=== PATIENT | female | born 1990 | race Hispanic/Latino ===

== ENCOUNTER 2017-12-24 06:49 | Emergency (ER) | payer OTHER ==
[2017-12-24 07:53] LABS: Basophils % (Auto) 0.2 % (0.0-1.8); Eosinophils % (Auto) 0.5 % (0.0-4.3); Hematocrit 31.9 % (30.3-42.9); Hemoglobin 11.1 gm/dl (10.1-14.3); Lymphocytes # (Auto) 1.4 K/mm3 (1.2-5.4); Lymphocytes % (Auto) 14.9 % (13.4-35.0); Mean Corpuscular HGB Conc 35 % (30-34); Mean Corpuscular Hemoglobin 30 pg (28-32); Mean Corpuscular Volume 87 fl (79-97); Monocytes # (Auto) 0.5 K/mm3 (0.0-0.8); Monocytes % (Auto) 4.9 % (0.0-7.3); Platelet Count 144 K/mm3 (140-440); Red Blood Count 3.67 M/mm3 (3.65-5.03); Red Cell Distribution Width 12.8 % (13.2-15.2)
[2017-12-24] MEDS ORDERED: TYLENOL PO ONE (07:58)
[2017-12-24] MEDS ORDERED: NACL 0.9% 1000 ML 1,000 ML IV ONE (07:58)
[2017-12-24] MEDS ORDERED: PEPCID IV ONE (07:58)
--- NOTE | 2017-12-24 07:59 | Emergency Department Report ---
ED General Adult HPI - General Chief complaint: Chest Pain Stated complaint: ABD/BACK PAIN Time Seen by Provider: 12/24/17 07:01 Source: patient, EMS (ems notes not available at time of chart dictation), RN notes reviewed, old records reviewed Mode of arrival: Stretcher Limitations: No Limitations - History of Present Illness Initial comments: This is a 27-year-old female. The patient is previously unknown to this provider. Her BUNDLING MACHINE OPERATOR doctor is Dr. Aditya Guerrero. She is 7, para 5. Last menstrual period is September 09. Diagnosed with a subchorionic hemorrhage a few days ago. Has a history of cholecystectomy. Is brought to the hospital by EMS for evaluation of chest pain and abdominal pain. The chest pain is epigastric and radiates to the bilateral back. It is associated with some shortness of breath. Patient reports that it started around 5:00 in the morning. It is intermittent. It does not have exacerbating or relieving factors. Patient also has right upper quadrant pain which she indicates feels like her prior episodes of cholecystitis/gallbladder pain. There is no hematemesis of bright red blood per rectum. Patient also describes an episode of feeling like she was given a pass out when she leaned over. This has since resolved. There is no severe headache or neck pain. -: Sudden Location: chest, abdomen Radiation: back, abdomen Quality: aching Consistency: intermittent Improves with: rest Worsens with: movement Associated Symptoms: chest pain, shortness of breath. denies: confusion, cough , diaphoresis, fever/chills, headaches, loss of appetite, malaise, nausea/ vomiting, rash, seizure, syncope, weakness - Related Data Previous Rx's Medication Instructions Recorded Last Taken Type Nitrofurantoin [place]/M-Cryst 100 mg PO Q12HR #14 capsule 12/24/17 Unknown Rx [Macrobid CAP] Allergies Allergy/AdvReac Type Severity Reaction Status Date / Time No Known Allergies Allergy Unverified 12/24/17 07:03 ED Review of Systems ROS: Stated complaint: ABD/BACK PAIN Other details as noted in HPI Comment: All other systems reviewed and negative ED Past Medical Hx - Past Medical History Previous Medical History?: No - Surgical History Past Surgical History?: Yes Hx Cholecystectomy: Yes - Social History Smoking Status: Never Smoker Substance Use Type: None - Medications Home Medications: Home Medications Medication Instructions Recorded Confirmed Last Taken Type Nitrofurantoin [place]/M-Cryst 100 mg PO Q12HR #14 capsule 12/24/17 Unknown Rx [Macrobid CAP] ED Physical Exam - General Limitations: No Limitations General appearance: alert, in no apparent distress - Head Head exam: Present: atraumatic, normocephalic - Eye Eye exam: Present: normal appearance, PERRL, EOMI, other (visual acuity intact to finger counting, color perception, reading at a close distance). Absent: nystagmus - ENT ENT exam: Present: normal exam, normal orophraynx, mucous membranes moist, normal external ear exam - Neck Neck exam: Present: normal inspection, full ROM - Respiratory Respiratory exam: Present: normal lung sounds bilaterally. Absent: respiratory distress - Cardiovascular Cardiovascular Exam: Present: regular rate, normal rhythm, normal heart sounds. Absent: bradycardia, tachycardia, irregular rhythm, systolic murmur, diastolic murmur, rubs, gallop - GI/Abdominal GI/Abdominal exam: Present: soft, tenderness (there is epigastric tenderness. There is no rebound, guarding or peritoneal signs), normal bowel sounds. Absent : distended, guarding, rebound, rigid, pulsatile mass - Extremities Exam Extremities exam: Present: normal inspection, full ROM, normal capillary refill , other (there is no palpable cord. His negative Homans sign.). Absent: pedal edema, joint swelling, calf tenderness - Back Exam Back exam: Present: normal inspection, full ROM. Absent: paraspinal tenderness , vertebral tenderness - Neurological Exam Neurological exam: Present: alert, oriented X3, CN II-XII intact, normal gait ( normal [id number]. Negative pass pointing. Negative pronator drift.), other (Extraocular movements intact. Tongue midline. No facial droop. Facial sensation intact to light touch in the V1, V2, V3 distribution bilaterally. 5 and 5 strength in 4 extremities.. Sensation is intact to light touch in 4 extremities.). Absent: motor sensory deficit - Psychiatric Psychiatric exam: Present: normal affect, normal mood - Skin Skin exam: Present: warm, dry, intact, normal color. Absent: rash ED Course Vital Signs 12/24/17 12/24/17 12/24/17 07:04 07:17 10:00 Temperature 98.1 F 97.9 F 98.3 F Pulse Rate 76 71 69 Respiratory 18 16 14 Rate Blood Pressure 91/49 Blood Pressure 98/55 96/40 [Left] O2 Sat by Pulse 100 100 100 Oximetry 12/24/17 11:37 Temperature Pulse Rate 60 Respiratory 16 Rate Blood Pressure Blood Pressure 98/61 [Left] O2 Sat by Pulse 100 Oximetry - Reevaluation(s) Reevaluation #1: 12/24/17 09:29 Differential diagnosis, including but not limited to: GERD, gastritis, orthostasis, vagal event, acute coronary syndrome, pulmonary embolus, hepatitis , pneumonia Assessment and plan: 27-year-old female who is , otherwise has no pulmonary embolus or DVT risk factors, low risk by MIGUEL score, low risk by heart score. Most likely GERD/gastritis, possible orthostatic event. DVT study is negative. X-ray of the chest was negative. EKG #1 is unremarkable and within normal limits. D-dimer is elevated. Extensive discussion had with the patient. Risks, benefits, alternatives of ionizing radiation discussed and she gives informed consent. Right upper quadrant ultrasound is pending. Obstetrics ultrasound is pending. Reevaluation #2: 12/24/17 11:01 Case was discussed with the patient's private BUNDLING MACHINE OPERATOR Dr. Guerrero. She agrees that patient is suitable to follow-up as an outpatient next week. Dilated right ureter on ultrasound most likely physiologic secondary to uterine enlargement. The right kidney morphology appears to be within normal limits. Has no urinary symptoms. Has no CVA tenderness. Urinalysis is pending at this time. Reevaluation #3: 12/24/17 11:51 CT scan of the chest is negative. Repeat troponin and urinalysis pending. Patient denied distress. Patient very slight stature, vital signs are appropriate. Reevaluation #4: 12/24/17 12:13 Troponin negative 2. Urinalysis with 1+ bacteria. Vital signs remained stable. Feels improved. Patient will be discharged. Return precautions reviewed. ED Medical Decision Making - Lab Data Result diagrams: 12/24/17 07:31 12/24/17 07:31 Vital Signs 12/24/17 12/24/17 07:04 07:17 Temperature 98.1 F 97.9 F Pulse Rate 76 71 Respiratory 18 16 Rate Blood Pressure 91/49 Blood Pressure 98/55 [Left] O2 Sat by Pulse 100 100 Oximetry Lab Results 12/24/17 12/24/17 12/24/17 Range/Units 07:31 07:31 07:31 WBC 9.3 (4.5-11.0) K/mm3 RBC 3.67 (3.65-5.03) M/mm3 Hgb 11.1 (10.1-14.3) gm/dl Hct 31.9 (30.3-42.9) % MCV 87 (79-97) fl MCH 30 (28-32) pg MCHC 35 H (30-34) % RDW 12.8 L (13.2-15.2) % Plt Count 144 (140-440) K/mm3 Lymph % (Auto) 14.9 (13.4-35.0) % [place] % (Auto) 4.9 (0.0-7.3) % Eos % (Auto) 0.5 (0.0-4.3) % Baso % (Auto) 0.2 (0.0-1.8) % Lymph # 1.4 (1.2-5.4) K/mm3 [place] # 0.5 (0.0-0.8) K/mm3 Eos # 0.0 (0.0-0.4) K/mm3 Baso # 0.0 (0.0-0.1) K/mm3 Seg Neutrophils % 79.5 H (40.0-70.0) % Seg Neutrophils # 7.4 (1.8-7.7) K/mm3 PT 13.3 (12.2-14.9) Sec. INR 0.96 (0.87-1.13) D-Dimer (0-234) ng/mlDDU Sodium 138 (137-145) mmol/L Potassium 3.6 (3.6-5.0) mmol/L Chloride 103.4 (98-107) mmol/L Carbon Dioxide 23 (22-30) mmol/L Anion Gap 15 mmol/L BUN 6 L (7-17) mg/dL Creatinine 0.4 L (0.7-1.2) mg/dL Estimated GFR > 60 ml/min BUN/Creatinine Ratio 15 % Glucose 92 (65-100) mg/dL Calcium 8.5 (8.4-10.2) mg/dL Total Bilirubin 0.50 (0.1-1.2) mg/dL AST 34 (5-40) units/L ALT 14 (7-56) units/L Alkaline Phosphatase 39 (35-129) units/L Total Protein 6.4 (6.3-8.2) g/dL Albumin 3.5 L (3.9-5) g/dL Albumin/Globulin Ratio 1.2 % Lipase (13-60) units/L HCG, Quant (0-4) mIU/mL Blood Type Antibody Screen 12/24/17 12/24/17 12/24/17 Range/Units 07:31 07:31 07:31 WBC (4.5-11.0) K/mm3 RBC (3.65-5.03) M/mm3 Hgb (10.1-14.3) gm/dl Hct (30.3-42.9) % MCV (79-97) fl MCH (28-32) pg MCHC (30-34) % RDW (13.2-15.2) % Plt Count (140-440) K/mm3 Lymph % (Auto) (13.4-35.0) % [place] % (Auto) (0.0-7.3) % Eos % (Auto) (0.0-4.3) % Baso % (Auto) (0.0-1.8) % Lymph # (1.2-5.4) K/mm3 [place] # (0.0-0.8) K/mm3 Eos # (0.0-0.4) K/mm3 Baso # (0.0-0.1) K/mm3 Seg Neutrophils % (40.0-70.0) % Seg Neutrophils # (1.8-7.7) K/mm3 PT (12.2-14.9) Sec. INR (0.87-1.13) D-Dimer (0-234) ng/mlDDU Sodium (137-145) mmol/L Potassium (3.6-5.0) mmol/L Chloride (98-107) mmol/L Carbon Dioxide (22-30) mmol/L Anion Gap mmol/L BUN (7-17) mg/dL Creatinine (0.7-1.2) mg/dL Estimated GFR ml/min BUN/Creatinine Ratio % Glucose (65-100) mg/dL Calcium (8.4-10.2) mg/dL Total Bilirubin (0.1-1.2) mg/dL AST (5-40) units/L ALT (7-56) units/L Alkaline Phosphatase (35-129) units/L Total Protein (6.3-8.2) g/dL Albumin (3.9-5) g/dL Albumin/Globulin Ratio % Lipase 49 (13-60) units/L HCG, Quant 72665 H (0-4) mIU/mL Blood Type A POSITIVE Antibody Screen Negative 12/24/17 Range/Units 07:31 WBC (4.5-11.0) K/mm3 RBC (3.65-5.03) M/mm3 Hgb (10.1-14.3) gm/dl Hct (30.3-42.9) % MCV (79-97) fl MCH (28-32) pg MCHC (30-34) % RDW (13.2-15.2) % Plt Count (140-440) K/mm3 Lymph % (Auto) (13.4-35.0) % [place] % (Auto) (0.0-7.3) % Eos % (Auto) (0.0-4.3) % Baso % (Auto) (0.0-1.8) % Lymph # (1.2-5.4) K/mm3 [place] # (0.0-0.8) K/mm3 Eos # (0.0-0.4) K/mm3 Baso # (0.0-0.1) K/mm3 Seg Neutrophils % (40.0-70.0) % Seg Neutrophils # (1.8-7.7) K/mm3 PT (12.2-14.9) Sec. INR (0.87-1.13) D-Dimer 313.68 H (0-234) ng/mlDDU Sodium (137-145) mmol/L Potassium (3.6-5.0) mmol/L Chloride (98-107) mmol/L Carbon Dioxide (22-30) mmol/L Anion Gap mmol/L BUN (7-17) mg/dL Creatinine (0.7-1.2) mg/dL Estimated GFR ml/min BUN/Creatinine Ratio % Glucose (65-100) mg/dL Calcium (8.4-10.2) mg/dL Total Bilirubin (0.1-1.2) mg/dL AST (5-40) units/L ALT (7-56) units/L Alkaline Phosphatase (35-129) units/L Total Protein (6.3-8.2) g/dL Albumin (3.9-5) g/dL Albumin/Globulin Ratio % Lipase (13-60) units/L HCG, Quant (0-4) mIU/mL Blood Type Antibody Screen - EKG Data -: EKG Interpreted by Me EKG shows normal: sinus rhythm, axis, intervals, QRS complexes, ST-T waves Rate: normal - EKG Data When compared to previous EKG there are: previous EKG unavailable 12/24/17 11:02 EKG #1 and 2 unchanged. Normal sinus, not consistent with STEMI, normal intervals, normal axis. There is no prior EKG for comparison. - Radiology Data Radiology results: report reviewed, image reviewed LIVE [facility] JAM[facility]Z [facility] 1990 [id number] 12/24/17 08:39 - Radiology Dept. Note by RIVER RUFFIN Acct Num: [id number] : 1990 Patient Age: 27 BLE VENOUS DUPLEX COMPLETED. VAS LAB PRELIMINARY REPORT; NO EVIDENCE OF DVT/SVT NOTED IN VESSELS/SEGMENTS EXAMINED, BLE. PHYSICIANS REPORT TO FOLLOW...(RSK) Initialized on 12/24/17 08:39 - END OF NOTE X-ray of the chest is negative Right upper quadrant ultrasound negative for biliary pathology. The right kidney appears to be within normal limits. There is a suspicion of a very mildly dilated right ureter. Obstetrics ultrasound shows appropriate into . Critical care attestation.: If time is entered above; I have spent that time in minutes in the direct care of this critically ill patient, excluding procedure time. ED Disposition Clinical Impression: Chest pain, Abdominal pain Disposition: - TO HOME OR SELFCARE Is pt being admited?: No Does the pt Need Aspirin: No Condition: Stable Instructions: Chest Pain (ED) Additional Instructions: Continue outpatient medications. Follow-up with a supervisor money room within the next 3-5 days. Follow-up with her security advisor early next week. Return to the ER right away with new pain, worsened pain, migration of pain, fevers, chills, lethargy, irritability, projectile vomiting, change in mental status, confusion , inability to tolerate liquid feeds. Prescriptions: Nitrofurantoin [place]/M-Cryst [Macrobid CAP] 100 mg PO Q12HR #14 capsule Referrals: PRIMARY CARE, [Primary Care Provider] - 3-5 Days DENILSON GUERRERO MD [Staff Physician] - 3-5 Days [facility] [Provider Group] - 3-5 Days [facility] [Provider Group] - 3-5 Days
[2017-12-24 08:03] LABS: INR 0.96 (0.87-1.13)
[2017-12-24 08:12] LABS: Alanine Aminotransferase 14 units/L (7-56); Albumin 3.5 g/dL (3.9-5); BUN/Creatinine Ratio 15; Blood Urea Nitrogen 6 mg/dL (7-17); Calcium 8.5 mg/dL (8.4-10.2); Hemolysis Index 2
--- NOTE | 2017-12-24 08:57 | XRay Report ---
Chest 2 views: History: Dyspnea. Findings: Normal cardiomediastinal silhouette. Trachea is midline. No consolidation, pneumothorax or pleural effusion. Impression: No acute cardiopulmonary findings.
--- NOTE | 2017-12-24 09:37 | Ultrasound Report ---
Sonogram right upper quadrant colon History: Right upper quadrant pain. Findings: Aortic diameter 1.4 cm. Normal liver. No intrahepatic or extrahepatic duct dilatation. Patient status post cholecystectomy. Common bile duct diameter 2.4 mm. Right kidney 11.2 x 3.5 x 4.7 cm. Cortical thickness 1 cm. Suspicion of mild dilatation of right ureter. Normal pancreas. Impression: Suspicion of mild dilatation of right ureter
--- NOTE | 2017-12-24 09:41 | Ultrasound Report ---
History: Abdominal pain. Findings: Gestation: Single Position: Cephalic Amniotic Fluid: SHARLENE = cm Placenta: The fundal Placental Grade: 1 Heart Rate: 157 BPM Cervical length: 3.5 cm (Normal > 3 cm) It is too early for a anatomical survey BPD: 3 cm = 15 w 3 d HC: 11 cm = 15 w 2 d AC: 9.1 cm = 15 w 2 d FL: 1.7 cm = 50 w 0 d HC/AC Ratio: 1.21 Cephalic Index: AP LMP: 09/09/17 Clinical age = 15 w 1 d EDC: 06/16/18 US Gest. Age = 15 w 2 d EDC: 06/15/18 Heterogeneous area noted inferior to the placenta and above the cervix measuring 5.7 x 1.3 x 5.8 cm. Patient has a history of subchorionic bleed.
--- NOTE | 2017-12-24 11:31 | Cat Scan Report ---
CTA chest: History: Chest and shortness of breath. Findings No endobronchial or mediastinal mass. No mediastinal, hilar or axillary adenopathy. No pleural pericardial effusion. No evidence of aortic aneurysm or pulmonary embolism. Normal lung parenchyma. No consolidation or mass. Impression No evidence of pulmonary embolism. No acute lung changes
[2017-12-24 12:11] LABS: Bacteria,Urine 1+ /HPF (Negative); Bilirubin,Urine NEG (Negative); Blood,Urine NEG (Negative); Color,Urine Straw (Yellow); Mucus,Urine FEW /HPF; Protein,Urine <15 mg/dL mg/dL (Negative); Urobilinogen,Urine < 2.0 mg/dL (<2.0)
[2017-12-24 12:23] VITALS: BP 100/65
--- NOTE | 2017-12-25 10:23 | Vascular Lab Report ---
LOWER EXTREMITY VENOUS DUPLEX: REASON FOR EXAM: DVT. Pulmonary embolism. Shortness of breath. COMMENTS ON THE RIGHT: All veins visualized are freely compressible without evidence of internal echogenicity. Flow is spontaneous and phasic throughout. COMMENTS ON THE LEFT: All veins visualized are freely compressible without evidence of internal echogenicity. Flow is spontaneous and phasic throughout. IMPRESSION: No evidence of acute or chronic deep venous thrombosis in either lower extremity.
== END 2017-12-24 12:27 | disposition home or self-care (01) ==
LOC: ED 06:49
DX: O26.899 Other specified pregnancy related conditions, unspecified trimester (principal); R10.13 Epigastric pain; R07.89 Other chest pain; Z3A.00 Weeks of gestation of pregnancy not specified
CPT/HCPCS: 36415; 71046; 71275; 76705; 76805; 80053; 81001; 83690; 84484; 84702; 85025; 85379; 85610; 86850; 86900; 86901; 93005; 93010; 93970; 96361; 96374; 99285; J7030; Q9967

== ENCOUNTER 2018-05-27 21:29 | Inpatient (IN) | payer OTHER ==
[2018-05-27] MEDS ORDERED: LACTATED RINGERS 1,000 ML IV ONE (22:30)
--- NOTE | 2018-05-28 01:51 | Ultrasound Report ---
FINAL REPORT EXAM: US OB BPP WO NON-STRESS HISTORY: for bpp. TECHNIQUE: Real-time sonography was performed of the gravid uterus for biophysical profile and images are submitted for interpretation. PRIORS: None. FINDINGS: There is a single fetus in the uterus in a cephalic presentation. The amniotic fluid index is normal at 18.5 cm. The heart is beating at a rate of 151 beats per minute. Biophysical profile: Breathin Movement: 2 Tone: 0 Fluid volume: 2 IMPRESSION: Abnormal biophysical profile, 11/29
--- NOTE | 2018-05-28 01:51 | Ultrasound Report ---
FINAL REPORT EXAM: US OB LIMITED HISTORY: For SHARLENE and BPP TECHNIQUE: Real-time sonography was performed of the gravid uterus for biophysical profile and images are submitted for interpretation. PRIORS: None. FINDINGS: There is a single fetus in the uterus in a cephalic presentation. The amniotic fluid index is normal at 18.5 cm. The heart is beating at a rate of 151 beats per minute. Biophysical profile: Breathin Movement: 2 Tone: 0 Fluid volume: 2 IMPRESSION: Abnormal biophysical profile 11/29
[2018-05-28] MEDS ORDERED: STADOL IV PRN (02:24)
[2018-05-28] MEDS ORDERED: SUBLIMAZE IV PRN (02:24)
[2018-05-28] MEDS ORDERED: LACTATED RINGERS 1,000 ML ONE (02:43)
[2018-05-28] MEDS ORDERED: POLYCILLIN/NS 2 GM/100 ML 2 GM/100 ML BAG IV SCH (03:00)
[2018-05-28 04:21] LABS: Hematocrit 30.5 % (30.3-42.9); Hemoglobin 10.3 gm/dl (10.1-14.3); Mean Corpuscular HGB Conc 34 % (30-34); Mean Corpuscular Hemoglobin 30 pg (28-32); Mean Corpuscular Volume 88 fl (79-97); Platelet Count 136 K/mm3 (140-440); Red Blood Count 3.47 M/mm3 (3.65-5.03); Red Cell Distribution Width 12.8 % (13.2-15.2)
[2018-05-28] MEDS: PITOCin/NS 30 UNIT/500ML 30 UNITS/500 ML BAG IV SCH ×2 (04:30→11:57)
[2018-05-28] MEDS ORDERED: AMPICILLIN/NS 1 GM/50 ML 1 GM/50 ML BAG ONE (06:04)
[2018-05-28] MEDS ORDERED: NARCAN 2 MG/2 ML IV PRN (06:18)
[2018-05-28] MEDS: LACTATED RINGERS 1,000 ML IV SCH ×2 (06:28→09:17)
[2018-05-28] MEDS: AMPICILLIN/NS 1 GM/50 ML 1 GM/50 ML BAG IV SCH ×2 (06:46→10:17)
--- NOTE | 2018-05-28 06:48 | Anesthesia Consultation ---
Anesthesia Consult and Med Hx Date of service: 05/28/18 - Airway Anesthetic Teeth Evaluation: Good ROM Head & Neck: Adequate Mental/Hyoid Distance: Adequate Mallampati Class: Class II Intubation Access Assessment: Possibly Difficult - Pulmonary Exam CTA: Yes - Cardiac Exam Cardiac Exam: RRR - Pre-Operative Health Status ASA Pre-Surgery Classification: ASA1, Emergency Proposed Anesthetic Plan: General, Spinal - Pulmonary Hx Smoking: No Hx Asthma: No - Cardiovascular System Hx Hypertension: No Hx Heart Attack/AMI: No - Central Nervous System Hx Neuromuscular Disorder: No Hx Seizures: No CVA: No - Endocrine Hx Renal Disease: No Hx Insulin Dependent Diabetes: No Hx Non-Insulin Dependent Diabetes: No - Hematic Hx Anemia: No Hx Sickle Cell Disease: No
[2018-05-28] MEDS ORDERED: fentaNYL-BUPIV 2 MCG/ML-0.125% 200 MCG/100 ML BAG EPIDURAL SCH (07:00)
--- NOTE | 2018-05-28 08:22 | History and Physical Report ---
History of Present Illness Date of examination: 05/28/18 Date of admission: 05/28/18 01:17 Chief complaint: contractions History of present illness: Pt is a 28 year old female MARIO 06/16/18 at 37w2d who presents with regular contractions. Also had a BPP since admission 11/29 (-2 for breathing and tone). She experienced spontaneous rupture of membranes at 0540 am, clear fluid. She has had care at [facility] since 14 wks with comanagement by [facility] complicated by h/o at 35 wks with pt decision to discontinue [place] injections, grandmultiparity, h/o LEEP, subchorionic hemorrhage in January 2018, genital herpes without lesion or prodrome, gestational thrombocytopenia, and placental lakes. She is GBS positive. Past History Past Medical History: no pertinent history Past Surgical History: cholecystectomy HALL MANAGER History: herpes Family/Genetic History: diabetes Social history: no significant social history - Obstetrical History Expected Date of Delivery: 06/16/18 Actual Gestation: 37 Week(s) 2 Day(s) : 7 Para: 5 Hx # Term Pregnancies: 4 Number of Pregnancies: 1 Spontaneous Abortions: 1 Induced : 0 Number of Living Children: 5 Medications and Allergies Allergies Allergy/AdvReac Type Severity Reaction Status Date / Time No Known Allergies Allergy Verified 05/27/18 21:52 Home Medications Medication Instructions Recorded Confirmed Last Taken Type No Known Home Medications [No 05/28/18 05/28/18 Unknown History Reported Home Medications] Active Meds: Active Medications Butorphanol Tartrate (Stadol) 2 mg IV Q2H PRN PRN Reason: Labor Pain Ephedrine Sulfate (Ephedrine Sulfate) 10 mg IV Q2M PRN PRN Reason: Hypotension Fentanyl (Sublimaze) 100 mcg IV Q1H PRN PRN Reason: Labor Pain Oxytocin/Sodium Chloride (Pitocin/Ns 30 Unit/500ml) 30 units in 500 mls @ 2 mls /hr IV TITR JUAN F; Protocol Last Titration: 05/28/18 05:20 Dose: 4 ml/hr, 4 mls/hr Lactated Ringer's (Lactated Ringers) 1,000 mls @ 125 mls/hr IV DIRECT JUAN F Last Admin: 05/28/18 06:28 Dose: 125 mls/hr Ampicillin Sodium (Ampicillin/Ns 1 Gm/50 Ml) 1 gm in 50 mls @ 100 mls/hr IV Q4HR [facility]; Protocol Last Admin: 05/28/18 06:46 Dose: 100 mls/hr Fentanyl/Bupivacaine/Sodium Chlor (Fentanyl-Bupiv 2 Mcg/Ml-0.125%) 200 mcg in 100 mls @ 12 mls/hr EPIDURAL TITR [facility]; Protocol Last Admin: 05/28/18 07:54 Dose: 12 mls/hr Naloxone HCl (Narcan 2 Mg/2 Ml) 0.2 mg IV Q5M PRN PRN Reason: Respiratory sedation Review of Systems All systems: negative - Vital Signs Vital signs: Vital Signs Pulse BP Pulse Ox 101 H 117/73 100 05/27/18 21:47 05/27/18 21:47 05/27/18 21:47 Temp Pulse Resp BP Pulse Ox 98.7 F 81 18 110/55 98 05/28/18 08:00 05/28/18 08:14 05/28/18 08:00 05/28/18 08:13 05/28/18 08:14 - Physical Exam Breasts: Positive: deferred Cardiovascular: Regular rate Lungs: Positive: Clear to auscultation Abdomen: Positive: soft (gravid) Uterus: Positive: enlarged (gravid ) Extremities: Positive: normal - Obstetrical FHR: category 2 Uterine Contraction Monitor Mode: External Cervical Dilatation: 5 Cervical Effacement Percentage: 90 station: -2 Uterine Contraction Pattern: Regular Uterine Tone Measurement Phase: Resting Uterine Contraction Intensity: Strong/Firm Results Result Diagrams: 05/28/18 02:00 Abnormal lab results 05/28/18 Range/Units 02:00 WBC 15.0 H (4.5-11.0) K/mm3 RBC 3.47 L (3.65-5.03) M/mm3 RDW 12.8 L (13.2-15.2) % Plt Count 136 L (140-440) K/mm3 All other labs normal. Assessment and Plan A: IUP at 37w2d Latent Labor SROM Grandmultiparity Genital Herpes without lesion or prodrome Gestational Thrombocytopenia H/o delivery Placental Lakes H/o LEEP GBS positive P: Admit to labor and delivery GBS prophylaxis Pitocin augmentation Routine intrapartum care
[2018-05-28] MEDS ORDERED: AFLURIA QUAD 2018-2019 SYRINGE IM ONE (12:00)
[2018-05-28] MEDS ORDERED: TYLENOL PO ONE (12:40)
[2018-05-28] MEDS ORDERED: PEPCID IV NR (13:00)
[2018-05-28] MEDS ORDERED: BICITRA PO NR (13:00)
[2018-05-28] MEDS ORDERED: ANCEF/STERILE WATER 2 GM/20 ML 2 GM/20 ML SYRINGE IV NR (13:00)
[2018-05-28] MEDS ORDERED: PITOCin/NS 20 UNIT/1000ML DRIP 20 UNITS/1,000 ML BAG IV SCH ×2 (13:00→16:50)
[2018-05-28] MEDS ORDERED: REGLAN IV NR (13:00)
[2018-05-28] MEDS ORDERED: LACTATED RINGERS 1,000 ML IV SCH (13:00)
--- NOTE | 2018-05-28 13:17 | Event Note ---
Date: 05/28/18 Pt's station has not changed despite being complete for over 3 hours. No descent of the head with good maternal effort. Pt now febrile to 102 degrees. Plan to proceed with delivery.
[2018-05-28] MEDS ORDERED: XYLOCAINE 2%/ EPI 1:200,000 INFILTRATI ONE (13:23)
[2018-05-28] MEDS ORDERED: SODIUM BICARBONATE IV ONE (13:24)
[2018-05-28] MEDS ORDERED: NACL 0.9% IR ONE (13:42)
[2018-05-28] MEDS ORDERED: WATER FOR IRRIG STERILE IR ONE (13:42)
[2018-05-28] MEDS ORDERED: NEO SYNEPHRINE/NS Syringe(OR USE) IV ONE ×2 (13:52→14:22)
[2018-05-28] MEDS ORDERED: SUBLIMAZE ONE (13:52)
[2018-05-28] MEDS ORDERED: METHERGINE IM ONE (13:58)
[2018-05-28] MEDS ORDERED: ZOFRAN ONE (14:22)
[2018-05-28] MEDS ORDERED: XYLOCAINE MPF 2% ONE (14:22)
--- NOTE | 2018-05-28 14:43 | Procedure Note ---
OB Delivery Note - Delivery Date of Delivery: 05/28/18 Surgeon: DENILSON REID Estimated blood loss: 1000cc - Section Preop diagnosis: arrest of descent, desires sterilization Postop diagnosis: same section procedure: section, primary low transverse, bilateral tubal ligation Disposition: PACU Complications: uterine atony Narrative: Please see operative report. - Infant A at 1 minute: 3 at 5 minutes: 8 Gender: Male (2908g (6lb 7oz) @ 1350 pm)
--- NOTE | 2018-05-28 14:47 | Operative Report ---
Operative Report Operative Report: Date of procedure: May 28, 2018 Preoperative diagnosis: 1) IUP at 37w2d 2) SROM 3) Arrest of Descent 4) Chorioamnionitis 5) Undesired Fertility Postoperative diagnosis: Same 6) Occiput Posterior Procedure: 1) Primary low transverse section 2) Bilateral tubal ligation via Filshie Clip Method Surgeon: Gayla Guerrero M.D. Anesthesia: Epidural Findings: 1) Viable male , Apgars 3 and 8, weight 2908g, (6 lb 7 oz) in cephalic presentation, occiput posterior 2) Normal-appearing uterus ovaries and tubes Estimated blood loss: 1000 mL IV fluids: 2700 mL Urine output: 300 mL, clear but concentrated at the end of the procedure Drains: Hare to gravity Specimens: Placenta to pathology Complications: None. Counts correct x 3 Medications: Methergine 0.2 mg IM Disposition: Stable to PACU Indication for procedure: The patient is a 28-year-old female 7 para 4115 at 37 weeks 2 days was admitted in labor with spontaneous rupture of membranes. The patient progressed to complete dilation then experienced arrest of descent with good maternal pushing effort as well as maternal fever indicating chorioamnionitis. The decision was made to proceed with delivery Operation in detail: After the risks, benefits, alternatives and complications were explained to the patient she gave informed consent for the procedure. She was subsequently taken to the operating room where epidural anesthesia was noted to be adequate. She was subsequently placed in the dorsal supine position with leftward tilt and prepped and draped in a normal sterile fashion. heart tones were noted to be in the 170s prior to incision. A timeout was performed. A Pfannenstiel skin incision was made with the knife and carried down to the layer of the fascia with the Bovie. The fascia was incised in the midline and the fascial incision was extended bilaterally with the Bovie. Attention was then turned to the superior aspect of the incision which was grasped with two Kochers, tented up, and dissected off the rectus muscles. Attention was then turned to the inferior aspect of the incision which was grasped with two Kochers , tented up and dissected off the rectus muscles. The rectus muscles were then in the midline. The peritoneum was then entered bluntly. The peritoneal incision was extended with good visualization of the bladder. The peritoneal incision was then stretched. An Mauricio self-retaining retractor was placed for visualization. The bladder blade was placed. The vesicouterine peritoneum was grasped with smooth pickups and incised with Metzenbaum scissors. Metzenbaum scissors were used to extend the incision bilaterally. The bladder flap was then created digitally and the bladder blade was replaced. A transverse incision was made in the lower uterine segment with a knife and extended bilaterally with the bandage scissors. The head was delivered with some difficulty followed by shoulders and body. was bulb suctioned at delivery. The cord was clamped and cut and the was handed to NICU staff in attendance. The placenta was then delivered manually. The uterus was then exteriorized and cleared of all clots and debris. The uterus was noted to be atonic despite Pitocin administration. Therefore Methergine 0.2 mg was administered IM. Uterine tone improved. The hysterotomy was then reapproximated with 0 Vicryl in a running locked fashion. A second layer of the same suture was used in imbricating fashion. Additional stitches of 2-0 Vicryl were used in a [id number] fashion to obtain hemostasis. Attention was then turned to the tubal ligation. The right tube was identified and followed to to the fimbriae. The tube was then grasped with a [place] and ligated with 2 Filshie clips. Attention was then turned to the left tube which in a similar fashion was followed down to the fimbriae, grasped with a [place], and ligated with 2 Filshie clips. Hemostasis was noted. The hysterotomy was inspected and hemostasis was noted. The uterus was then returned to the peritoneal cavity. All instruments were removed from the abdominal cavity. The gutters were irrigated and cleared of all clots and debris. The hysterotomy was again inspected and noted to be hemostatic. Surgicel was then placed over the hysterotomy. The peritoneum was reapproximated with 2-0 Vicryl in a running fashion incorporating the rectus muscles. The fascia was reapproximated with 0 Vicryl in a running fashion. The subcutaneous tissue was reapproximated with 3-0 Vicryl in a running fashion. The skin was reapproximated with 4-0 Vicryl in a subcuticular fashion. The incision was then covered with steri strips and a pressure dressing. The procedure was then ended. The patient tolerated the procedure well and was taken to the PACU in stable condition. All instrument, lap, and needle counts were correct 3.
[2018-05-28] MEDS ORDERED: DILAUDID IV PRN (15:34)
[2018-05-28] MEDS ORDERED: BENADRYL IV PRN (15:34)
[2018-05-28] MEDS ORDERED: NUBAIN IV PRN (15:34)
[2018-05-28] MEDS ORDERED: ZOFRAN IV PRN ×2 (15:34→16:50)
[2018-05-28] MEDS ORDERED: SODIUM CHLORIDE FLUSH SYRINGE 10 ML IV NR (16:00)
[2018-05-28] MEDS ORDERED: NARCAN 0.4 MG/1 ML IV PRN (16:50)
[2018-05-28] MEDS ORDERED: SODIUM CHLORIDE FLUSH SYRINGE 10 ML IV SCH (16:50)
[2018-05-28] MEDS ORDERED: MYLICON PO PRN (16:50)
[2018-05-28] MEDS ORDERED: TUCKS PAD TP PRN (16:50)
[2018-05-28] MEDS ORDERED: LANSINOH TP PRN (16:50)
[2018-05-28] MEDS ORDERED: MORPHINE IV PRN ×2 (16:50)
[2018-05-28] MEDS ORDERED: ASTRAMORPH PF 10MG/10ML ONE (17:15)
[2018-05-28] MEDS: TORADOL IV PRN ×2 (17:21→23:28)
[2018-05-28] MEDS ORDERED: D5LR 1,000 ML IV SCH (18:00)
[2018-05-28] MEDS ORDERED: ANCEF/NS 1 GM/50 ML 1 GM/50 ML BAG IV SCH ×2 (18:00→22:00)
[2018-05-28] MEDS: PERCOCET 5/325 PO PRN (20:42)
[2018-05-28] MEDS: MILK OF MAGNESIA PO SCH (23:28)
[2018-05-29] MEDS: PERCOCET 5/325 PO PRN ×3 (04:28→16:30)
[2018-05-29 05:51] LABS: Hematocrit 21.9 % (30.3-42.9); Hemoglobin 7.5 gm/dl (10.1-14.3)
[2018-05-29] MEDS ORDERED: BOOSTRIX IM ONE (06:00)
[2018-05-29] MEDS: MILK OF MAGNESIA PO SCH ×2 (06:12→12:58)
[2018-05-29] MEDS: FEOSOL PO SCH (10:44)
[2018-05-29] MEDS ORDERED: M-M-R II VACCINE SUB-Q ONE (14:52)
[2018-05-30] MEDS: MILK OF MAGNESIA PO SCH ×2 (00:03→06:00)
[2018-05-30] MEDS: MOTRIN PO PRN ×2 (00:48→12:37)
[2018-05-30] MEDS: PERCOCET 5/325 PO PRN ×3 (00:49→18:17)
--- NOTE | 2018-05-30 10:32 | Progress Note ---
Assessment and Plan POD 2 s/p ltcs. Patient now with diarrhea. will c/s stool softeners to see if issue resolves. Plan for possible discharge on tomorrow Subjective - Subjective Date of service: 05/30/18 Interval history: Patient is POD 2 s/p ltcs. Patient is ambulating and tolerating po. She has also had a bowel movement, but reports having diarrhea. Patient reports: appetite normal, voiding normally, pain well controlled, flatus , ambulating normally : doing well Objective - Vital Signs Latest vital signs: Vital Signs Temp Pulse Resp BP BP Pulse Ox 05/30/18 09:14 98.2 F 72 18 118/67 05/30/18 08:19 78 95 05/30/18 06:14 18 05/30/18 05:14 18 05/30/18 01:49 18 05/30/18 01:48 18 05/30/18 00:49 18 05/30/18 00:48 18 05/30/18 00:30 98.7 F 77 18 114/76 05/29/18 17:05 98.0 F 90 18 111/67 97 Intake and Output 05/29/18 05/30/18 05/30/18 22:59 06:59 14:59 Intake Total 540 320 Output Total 200 Balance 340 320 Intake: Oral 240 200 Intake, Free Water 300 120 Output: Urine 200 Void 200 Other: Total, Intake Amount 240 200 Total, Output Amount 200 # Voids Void 1 1 # Bowel Movements 1 - Exam Breasts: Present: deferred Cardiovascular: Present: Regular rate, Normal S1, Normal S2 Lungs: Present: Clear to auscultation, Normal air movement Abdomen: Present: normal appearance, soft, normal bowel sounds Vulva: both: normal Uterus: Present: normal, firm, fundal height below umbilicus Extremities: Present: normal Deep Tendon Reflex Grade: Normal +2
[2018-05-30] MEDS ORDERED: AFLURIA QUAD 2018-2019 SYRINGE IM ONE (12:00)
[2018-05-30] MEDS: FEOSOL PO SCH (12:38)
[2018-05-30] MEDS: IMODIUM PO PRN ×2 (12:44→18:17)
[2018-05-31] MEDS: PERCOCET 5/325 PO PRN (01:55)
--- NOTE | 2018-05-31 07:53 | Progress Note ---
Assessment and Plan A: POD#3 s/p primary section with tubal ligation, Asymptomatic anemia P: Discharge today with follow up in two weeks for incision check with Dr Guerrero Subjective - Subjective Date of service: 05/31/18 Principal diagnosis: POD#3 s/p primary with tubal, uterine atony Interval history: Pt without complaints. She had two bowel movements yesterday and required two doses of Immodium. She asks to go home today. Patient reports: appetite normal, voiding normally, pain well controlled, flatus , bowel movement, ambulating normally, no dizzy ambulation : doing well Objective - Vital Signs Latest vital signs: Vital Signs Temp Pulse Resp BP Pulse Ox 05/30/18 23:30 98.7 F 77 18 117/78 05/30/18 18:17 18 05/30/18 17:52 97.8 F 79 18 112/71 05/30/18 15:41 75 96 05/30/18 12:37 18 05/30/18 09:14 98.2 F 72 18 118/67 05/30/18 08:19 78 95 Intake and Output 05/30/18 05/31/18 05/31/18 22:59 06:59 14:59 Intake Total 1000 300 Balance 1000 300 Intake: IV 1000 D5lr 1,000 ml @ 125 mls/ 1000 hr IV DIRECT JUAN F Rx#: [id number] Intake, Free Water 300 - Exam Breasts: Present: deferred Cardiovascular: Present: Regular rate Lungs: Present: Clear to auscultation Abdomen: Present: soft, normal bowel sounds Uterus: Present: fundal height below umbilicus Extremities: Present: normal Incision: Present: intact
--- NOTE | 2018-05-31 07:59 | Discharge Summary ---
Providers - Providers Date of Admission: 05/28/18 01:17 Date of discharge: 05/31/18 Attending physician: DENILSON REID 05/28/18 16:50 Consult to Medical Office Supervisor [CONS] Routine Reason For Exam: Primary care physician: DENILSON REID Hospitalization Reason for admission: rupture of membranes Delivery: Procedure: section, bilateral tubal ligation, primary low transverse Procedure details: Please see operative note. Incision: intact Other procedures: none complications: none Discharge diagnosis: IUP at term delivered [place] baby: male Hospital course: Pt was admitted in latent labor with rupture of membranes at term, and ultimately delivered by primary section with tubal ligation which she tolerated well. Her postoperative course was complicated by frequent bowel movement after milk of magnesia that was resolved with two doses of Immodium. The remainder of her hospital course was uncomplicated and she met discharge criteria on POD#3. She will follow up in 2 weeks for an incision check. Condition at discharge: Stable Disposition: [id number] TO HOME OR SELFCARE - Discharge Diagnoses (1) Term of male Status: Acute (2) Gestational thrombocytopenia Status: Acute Qualifiers: Trimester: third trimester Qualified Code(s): O99.113 - Other diseases of the blood and blood-forming organs and certain disorders involving the immune mechanism complicating , third trimester; D69.6 - Thrombocytopenia, unspecified (3) Acute blood loss anemia Status: Acute Plan - Discharge Medications Prescriptions: Docusate Sodium [Colace] 100 mg PO BID PRN #60 capsule PRN Reason: Constipation Ferrous Sulfate [Feosol 325 MG tab] 325 mg PO BID #60 tablet Ferrous Sulfate [Feosol 325 MG tab] 325 mg PO TID #90 tablet Ibuprofen [Motrin] 800 mg PO Q8HR PRN #30 tablet PRN Reason: Pain, Moderate (4-6) oxyCODONE /ACETAMINOPHEN [Percocet 5/325] 1 tab PO Q6HR PRN #40 tablet PRN Reason: Pain - Provider Discharge Summary Activity: routine, no sex for 6 weeks, no heavy lifting 4 weeks, no strenuous exercise Diet: routine Instructions: routine Additional instructions: [] Smoking cessation referral if applicable(refer to patient education folder for contact #) [] Refer to [facility]'s [facility] Booklet Call your doctor immediately for: * Fever > 100.5 * Heavy vaginal bleeding ( >1 pad per hour) * Severe persistent headache * Shortness of breath * Reddened, hot, painful area to leg or breast * Drainage or odor from incision. * Keep incision clean and dry at all times and follow doctor's instructions regarding bathing/showering Please schedule your son's circumcision before he is one month old. - Follow up plan Follow up: DENILSON REID MD [Primary Care Provider] - 06/14/18 (Please call the office to schedule an incision check )
[2018-05-31 09:03] LABS: Hematocrit 24.7 % (30.3-42.9); Hemoglobin 8.2 gm/dl (10.1-14.3)
[2018-05-31] MEDS: MOTRIN PO PRN (09:18)
[2018-05-31] MEDS: FEOSOL PO SCH (09:18)
[2018-05-31 16:53] VITALS: BP 120/75
== END 2018-05-31 18:03 | disposition home or self-care (01) | DRG 765 ==
LOC: TRG 21:29 → LD 05-28 01:17 → OB 05-28 16:41
PROVIDERS: ADMIT Obstetrics & Gynecology; ATTEND Obstetrics & Gynecology
PROC: 10D00Z1 Extraction of Products of Conception, Low, Open Approach (ICD-10-PCS; principal; 2018-05-28)
PROC: 0UL70CZ Occlusion of Bilateral Fallopian Tubes with Extraluminal Device, Open Approach (ICD-10-PCS; 2018-05-28)
PROC: 3E0234Z Introduction of Serum, Toxoid and Vaccine into Muscle, Percutaneous Approach (ICD-10-PCS; 2018-05-28)
DX: O64.8XX0 Obstructed labor due to other malposition and malpresentation, not applicable or unspecified (principal); O41.1230 Chorioamnionitis, third trimester, not applicable or unspecified; Z3A.37 37 weeks gestation of pregnancy; Z37.0 Single live birth; Z23 Encounter for immunization; O99.824 Streptococcus B carrier state complicating childbirth; Z83.3 Family history of diabetes mellitus; O98.32 Other infections with a predominantly sexual mode of transmission complicating childbirth; A60.00 Herpesviral infection of urogenital system, unspecified; O99.12 Other diseases of the blood and blood-forming organs and certain disorders involving the immune mechanism complicating childbirth; D69.6 Thrombocytopenia, unspecified; O62.2 Other uterine inertia; O99.02 Anemia complicating childbirth; D62 Acute posthemorrhagic anemia; Z90.49 Acquired absence of other specified parts of digestive tract; Z30.2 Encounter for sterilization
CPT/HCPCS: 36415; 76815; 76819; 85014; 85018; 85027; 86850; 86900; 86901; 88307; 90471; 90686; 90715; G0008; J0290; J0690; J1170; J1885; J2210; J2274; J2370; J2405; J2590; J2765; J3010; J7120; J7121